=== PATIENT | female | born 1940 ===

== ENCOUNTER 2025-02-21 13:08 | Outpatient (RCR) | payer OTHER, SELFPAY | END 2025-02-21 23:59 | disposition home or self-care (01) | LOC: RPT 13:08 | PROVIDERS: ATTENDING PHYSICIAN Nurse Practitioner Family | DX: G89.29 Other chronic pain (principal); M54.50 Low back pain, unspecified; M54.59 Other low back pain; Z73.6 Limitation of activities due to disability | CPT/HCPCS: 97110; 97112; 97162 ==

== ENCOUNTER 2025-03-28 13:57 | Outpatient (RCR) | payer OTHER, SELFPAY | END 2025-03-28 23:59 | disposition home or self-care (01) | LOC: RPT 13:57 | PROVIDERS: ATTENDING PHYSICIAN Nurse Practitioner Family | DX: G89.29 Other chronic pain (principal); M54.50 Low back pain, unspecified; M54.59 Other low back pain; Z73.6 Limitation of activities due to disability | CPT/HCPCS: 97110; 97112; 97140; 97530 ==

== ENCOUNTER 2025-04-26 11:17 | Outpatient (RCR) | payer OTHER, SELFPAY | END 2025-04-26 23:59 | disposition home or self-care (01) | LOC: RPT 11:17 | PROVIDERS: ATTENDING PHYSICIAN Nurse Practitioner Family | DX: G89.29 Other chronic pain (principal); M54.50 Low back pain, unspecified; Z73.6 Limitation of activities due to disability; M62.81 Muscle weakness (generalized); M54.59 Other low back pain; M41.9 Scoliosis, unspecified | CPT/HCPCS: 97110; 97112; 97162; 97530 ==